=== PATIENT | male | born 1970 | race Caucasian/White ===

== ENCOUNTER 2019-12-27 14:11 | Emergency (ER) | payer OTHER, SELFPAY ==
--- NOTE | ~2019-12-27 | XR_ITS ---
EXAMINATION: XR hand LT 2V DATE: 12/27/2019 14:54 INDICATION: Left hand foreign bodies. TECHNIQUE: 2 views of left hand were obtained. COMPARISON: Left hand radiographs 11/19/2016 FINDINGS: Bone alignment is normal. No fracture. There is mild osteoarthritis of first carpometacarpa l joint and first metacarpophalangeal joint. There are nails in the soft tissues of the fourth and fi fth digits. IMPRESSION: 1. Nails in the soft tissues of the fourth and fifth digits. Reviewed, dictated and finalized at location A.
[2019-12-27 14:27] VITALS: BP 133/82; PULSE 93; RESP 14; TEMP 36.7; O2SAT 97
[2019-12-27] MEDS: TETANUS,DIPHTHERIA,AC PERTUSSIS ADULT 0.5 ML (ADACEL) IM (14:54)
[2019-12-27] MEDS: cefTRIAXone 1 GM VIAL IM (15:24)
[2019-12-27] MEDS: LIDOCAINE HCL 1% LOCAL INJ 20 ML VIAL (15:24)
--- NOTE | 2019-12-27 15:24 | ED.WOUNDLAC ---
HPI - Wound/Laceration General Chief Complaint: Wound/Laceration Stated Complaint: nail through hand Source: patient Mode of arrival: ambulatory Limitations: no limitations History of Present Illness HPI narrative: This is a 49-year-old patient presents with some nail through his left 4th finger that occurred earlier today while he was pulling up carpet and putting down a base a board and and elisabeth in his son's bedroom the nail went through the 4th left finger on the distal end currently there is no blood loss there was a non another nail that was touching the 5th finger but did not penetrate the skin. Has good range of motion although there was some pain and numbness. Patient was not up-to-date with his tetanus and was given at a cell. Onset (ago): hour(s) Extremity Location: Left: hand (nail through left 4th finger) Place: home Context: accidental Associated symptoms: pain Related Data Allergies Allergy/AdvReac Type Severity Reaction Status Date / Time No Known Allergies Allergy Verified 12/27/19 14:25 Review of Systems Review of Systems: All systems reviewed & are unremarkable except as noted in HPI and below PMFSH Past Medical History Medical History Diabetes mellitus Exam Const: General: no acute distress and alert Orientation/consciousness: patient oriented x3 HENMT: Head: normal to inspection and contusion Eyes: Conjunctivae: conjunctivae normal Pupils: Equal, round and reactive pupils present Neck: Neck: normal visual inspection, no lymphadenopathy and no meningeal signs Chest: Chest palpation & inspection: normal inspection of the chest Resp: Effort & Inspection: normal respiratory effort Auscultation: clear to auscultation bilaterally Cardio: Rate: regular rate Rhythm: regular rhythm Skin: Wounds: wounds noted ( nail that penetrated through the left 4th finger) Neuro: General: patient oriented x3, moves all extremities and no meningeal signs Extrem: General: normal to inspection Course Course Emergency Course: patient was id with his tetanus vaccine, was given a g of Rocephin IM, x-ray performed which did not show any fractures of the bone no indication of penetration into the bone patient was informed of this and the patient did receive 1% lidocaine and had a nerve block into the left 4th finger and the nail was removed with no incident, no bleeding minimal pain. Vital Signs Vital signs: Vital Signs Temperature 36.7 C 12/27/19 14:27 Pulse Rate 93 12/27/19 14:27 Respiratory Rate 14 12/27/19 14:27 Blood Pressure 133/82 12/27/19 14:27 Pulse Oximetry 97 12/27/19 14:27 Temperature 36.7 C 12/27/19 14:27 Pulse Rate 93 12/27/19 14:27 Respiratory Rate 14 12/27/19 14:27 Blood Pressure 133/82 12/27/19 14:27 Pulse Oximetry 97 12/27/19 14:27 Procedures Foreign Body Removal Foreign Body #1: Foreign Body Removal Date: 12/27/19 Foreign Body Removal Time: 15:30 Time Out Performed: no Site: left and hand ( Left 4th finger) Technique: manual removal Confirmed by:: direct visualization Complications: none Post-procedure exam: awake, alert Neurovascular: normal distal pulse Nerve Block Nerve Block 1: Nerve block date: 12/27/19 Nerve block time: 15:05 Time out performed: No Local Anesthetic: lidocaine 1% Amount of anesthesia used (mL): 10 Side: left Nerve Blocks: digital Procedure Successful: Yes Patient Tolerated Procedure: well Complications: none Critical Care Time Critical Care Time Critical Care Time: No Discharge Plan Discharge Clinical Impression: Foreign body (FB) in soft tissue, Cellulitis and abscess of hand Patient Disposition: Home, Self-Care Condition: Stable Instructions: Antibiotic Form Additional Instructions: take medicine as prescribed, follow-up
[2019-12-27 15:36] VITALS: RESP 15; O2SAT 100
--- NOTE | 2019-12-28 15:58 | PCCCNOTE ---
ED visit information [facility]. Spoke with Simón. Confirmation # [id number]
== END 2019-12-27 15:37 | disposition home or self-care (01) ==
PROVIDERS: Emergency Provider Emergency Medicine
DX: S61.245A Puncture wound with foreign body of left ring finger without damage to nail, initial encounter (principal); L03.114 Cellulitis of left upper limb; W45.0XXA Nail entering through skin, initial encounter
CPT/HCPCS: 73120; 90471; 90715; 96372; 99283; J0696

== ENCOUNTER 2025-06-11 07:41 | Emergency (ER) | payer OTHER, SELFPAY ==
--- NOTE | ~2025-06-11 | XR_ITS ---
EXAMINATION: XR foot RT min 3V, 06/11/2025 8:25 BUYER HISTORY: r/o OM/cellulitis, lateral redness, swollen, pain with WB COMPARISON: No comparisons available. Findings: No acute fracture or malalignment. No significant degenerative changes. Soft tissues unremarkable. Impression: No acute fracture or malalignment. Reviewed, dictated and finalized at location P. R Impression: No acute fracture or malalignment.
--- NOTE | 2025-06-11 07:42 | ED_ITS ---
HPI - Skin/Abscess/Foreign Bdy General Chief complaint: Extremity Problem,Nontraumatic Stated complaint: R. foot pain Time Seen by Provider: 06/11/25 07:42 Source: patient Mode of arrival: ambulatory Limitations: no limitations History of Present Illness HPI narrative: Patient is a 55-year-old male with a right foot redness over the past day. He woke up this morning with red foot on the right. He is diabetic 2. He has a corn on the bottom of his right foot laterally. No fever or chills. No injuries. MD complaint: rash (Right foot) Onset (ago): day(s) (1) Tetanus up to date: yes (Given in the past 10 years) Location: R foot Severity: moderate Severity scale (1-10): 1 Quality: burning Pain Consistency: intermittent Relieving factors: none Exacerbating factors: none Context: other (Patient has a corn on the bottom of his right foot and there has been a new redness he noted this morning around that area and the top of the foot with his diabetes 2) Associated symptoms: denies other symptoms Treatments prior to arrival: none Related Data Allergies Allergy/AdvReac Type Severity Reaction Status Date / Time No Known Allergies Allergy Verified 06/11/25 07:42 Review of Systems 2 Review of Systems: All systems reviewed & are unremarkable except as noted in HPI and below Constitutional: Constitutional: Reports no additional constitutional complaints Eyes: Eyes: Reports no additional eye complaints ENT: Reports system reviewed and no additional complaints, except as documented Cardiovascular: Cardiovascular: Reports no additional cardiovascular complaints Respiratory: Respiratory: Reports no additional respiratory complaints Gastrointestinal: Gastrointestinal: Reports no additional gastrointestinal complaints Genitourinary: Genitourinary: Reports no additional male genitourinary complaints Musculoskeletal: Musculoskeletal: Reports no additional musculoskeletal complaints Integumentary/Breasts: Skin/Breast: Reports system reviewed and no additional complaints, except as docu Neurologic: Reports system reviewed and no additional complaints, except as documented Psychiatric: Psychiatric: Reports no additional psychiatric complaints Endocrine: Endocrine: Reports no additional endocrine complaints Hematologic/Lymphatic: Hematologic/Lymphatic: Reports no additional hematologic/lymphatic complaints Allergic/Immunologic: Allergic/Immunologic: Reports no additional allergic/immunologic complaints PMFSH Social History Social History Smoking status: Never smoker Exam 2 Const: General: healthy appearing Nutritional Appearance: well nourished Orientation/consciousness: patient oriented x3 HENMT: Head: normal to inspection Ears: external ears normal F enriqueta/Nose/Sinus: Normal external nose present Eyes: Conjunctivae: conjunctivae normal Pupils: Equal, round and reactive pupils present EOM: EOMs intact bilaterally Neck: Neck: normal visual inspection Chest: Chest palpation & inspection: normal inspection of the chest Resp: Effort & Inspection: normal respiratory effort and not labored A uscultation: clear to auscultation bilaterally and no crackles Cardio: Rate: regular rate Rhythm: regular rhythm Heart sounds: no murmurs GI: Inspection: non-distended GI Palp: Yes Soft to palpation and No Tenderness to palpation present (GI) Auscultation: normal bowel sounds : General: Yes bladder normal to palpation Back/Spine/Pelvis: Back: no CVA tenderness Skin: General skin exam: No normal color Rashes: rash noted Wounds: w ound noted Other: Right foot has a corn on the bottom with a central opening but no pus; there is erythema around the corn and extends laterally and medially but laterally it comes all the way around to the top of the foot medially it stops midfoot; erythema does not extend into the toes Neuro: General: patient oriented x3, moves all extremities and no meningeal signs Extrem: General: abnormal to inspection (See skin exam), no clubbing, cyanosis or edema and no pedal edema Psych: Mental Status: mental status grossly normal Affect: normal affect Attitude: cooperative Course Vital Signs Vital signs: Vital Signs Temperature 36.2 C L 06/11/25 07:43 Pulse Rate 107 H 06/11/25 07:43 Respiratory Rate 20 06/11/25 07:43 Blood Pressure 141/72 H 06/11/25 07:43 Pulse Oximetry 99 06/11/25 07:43 Oxygen Delivery Room Air 06/11/25 07:43 Temperature 36.2 C L 06/11/25 07:43 Pulse Rate 107 H 06/11/25 07:43 Respiratory Rate 20 06/11/25 07:43 Blood Pressure 141/72 H 06/11/25 07:43 Pulse Oximetry 99 06/11/25 07:43 Oxygen Delivery Room Air 06/11/25 07:43 MDM - Skin/Abscess/Foreign Bdy MDM Narrative Medical decision making narrative: Patient is a 55-year-old male with a right foot redness for 1 day and and he has diabetes 2. Septic workup and Rocephin IM. Discharged with Levaquin and Bactrim. Lab Data Attestation: I reviewed the patient's lab results. 06/11/25 08:02 06/11/25 08:02 Labs: Lab Results 06/11/25 Range/Units 08:02 WBC 10.9 H (4.8-10.8) K/mm3 RBC 4.20 L (4.70-6.10) M/mm3 Hgb 13.7 L (14.0-18.0) g/dL Hct 39.9 L (40.0-54.0) % MCV 95.0 (78.0-102.0) fL MCH 32.6 H (27.0-31.0) pg MCHC 34.3 (32-36) g/dL RDW 11.9 (11.6-14.4) % Plt Count 216 (150-420) K/mm3 MPV 9.2 (8.7-11.0) fl Immature Gran % (Auto) 0.4 H (0.0-0.0) % Neut % (Auto) 82.9 H (50.0-70.0) % Lymph % (Auto) 8.8 L (18.0-42.0) % Mcnairy % (Auto) 7.2 (2.0-11.0) % Eos % (Auto) 0.5 L (1.0-6.0) % Baso % (Auto) 0.2 (0.0-1.0) % Lymph # (Auto) 0.96 L (1.10-4.50) K/mm3 Mcnairy # (Auto) 0.78 (0.10-0.90) K/mm3 Eos # (Auto) 0.05 (0.02-0.50) K/mm3 Baso # (Auto) 0.02 (0.00-0.10) K/mm3 Abs Immat Gran (auto) 0.04 H (0.00-0.00) K/mm3 Absolute Neuts (auto) 9.00 H (1.70-7.20) K/mm3 Absolute Nucleated RBC 0.00 (0.00-0.00) K/mm3 Nucleated RBC % 0.0 (0-0.0) % Sodium 141 (137-145) mmol/L Potassium 4.3 (3.4-5.0) mmol/L Chloride 101 (98-107) mmol/L Carbon Dioxide 26 (22-30) mmol/L Anion Gap 14 H (4-12) mmol/L BUN 21 H (9-20) mg/dL Creatinine 1.19 (0.7-1.3) mg/dL Estim Creat Clear Calc 78 ml/min Estimated GFR > 60 (59 - ) Glucose 180 H (65-110) mg/dL Calculated Osmolality 300 H (285-295) mOsm/kg Lactic Acid 1.3 (0.7-2.0) mmol/L Calcium 9.3 (8.4-10.2) mg/dL Total Bilirubin 1.3 (0.2-1.3) mg/dL AST 24 (17-59) U/L ALT 16 (6-50) U/L Alkaline Phosphatase 103 (38-126) U/L Total Protein 7.2 (6.3-8.2) g/dL Albumin 4.3 (3.5-5.1) g/dL Imaging Data Attestation: I personally reviewed and interpreted this imaging study as follows: Radiologist's impression: X-ray right foot was negative for acute process Discharge Plan Discharge Clinical Impression: Cellulitis of foot, right, Diabetes mellitus type 2 in nonobese Patient Disposition: Home Condition: Stable Instructions: Antibiotic Form, Cellulitis (ED), Foot Care for People with Diabetes (DC) Additional Instructions: Please follow-up with the primary doctor in the next week. If this area gets worse over the next 2 days then come back to the ER for further evaluation and probable admission for IV antibiotics. Make sure to use probiotics such as yogurt while on these antibiotics. Seek medical help if you get severe diarrhea. Patient Language: Danish Prescriptions: New levofloxacin 500 mg tablet 500 mg PO DAILY Qty: 10 0RF sulfamethoxazole-trimethoprim [Bactrim DS] 800-160 mg tablet 1 tablet PO BID 10 Days Qty: 20 0RF No Action orphenadrine citrate 100 mg tablet extended release 100 mg PO Q12H PRN (Reason: pain) Qty: 20 0RF Follow-up/Referrals: UNKNOWN,DOCTOR [Primary Care Provider] Time of Disposition: 08:48
[2025-06-11 07:43] VITALS: BP 141/72; PULSE 107; RESP 20; TEMP 36.2; O2SAT 99
[2025-06-11] MEDS: cefTRIAXone 1 GM, LIDOCAINE 1% LOCAL INJ 2.1 ML IM (08:07)
[2025-06-11 08:15] LABS: Hematocrit 39.9 % (40.0-54.0); Hemoglobin 13.7 g/dL (14.0-18.0); Immature Granulocyte Percent A 0.4 % (0.0-0.0); Lymphocytes Absolute Auto 0.96 K/mm3 (1.10-4.50); Mean Corpuscular HGB Conc 34.3 g/dL (32-36); Mean Corpuscular Hemoglobin 32.6 pg (27.0-31.0); Mean Corpuscular Volume 95.0 fL (78.0-102.0); Nucleated Red Blood Cells Absolute Auto 0.00 K/mm3 (0.00-0.00); Nucleated Red Blood Cells Perc 0.0 % (0-0.0); Platelet Count Result 216 K/mm3 (150-420); Red Blood Count 4.20 M/mm3 (4.70-6.10); White Blood Count 10.9 K/mm3 (4.8-10.8)
[2025-06-11 08:27] LABS: Alanine Aminotransferase 16 U/L (6-50); Albumin Level 4.3 g/dL (3.5-5.1); Alkaline Phosphatase 103 U/L (38-126); Anion Gap 14 mmol/L (4-12); Aspartate Amino Transferase 24 U/L (17-59); Bilirubin,Total 1.3 mg/dL (0.2-1.3); Blood Urea Nitrogen 21 mg/dL (9-20); Calcium 9.3 mg/dL (8.4-10.2); Carbon Dioxide 26 mmol/L (22-30); Chloride 101 mmol/L (98-107); Estimated CRCL calculation 78 ml/min; Estimated Glomerular Filt Rate > 60; Glucose 180 mg/dL (65-110); Osmolality Calculated 300 mOsm/kg (285-295); Potassium 4.3 mmol/L (3.4-5.0); Sodium 141 mmol/L (137-145); Total Protein 7.2 g/dL (6.3-8.2)
--- NOTE | 2025-06-11 08:31 | PC.NURSE ---
Radiology at bedside.
[2025-06-11 09:04] VITALS: BP 104/74; PULSE 93; RESP 16; O2SAT 99
--- NOTE | 2025-06-14 17:14 | PC.NURSE ---
blood, culture, preliminary no growth
--- NOTE | 2025-06-18 14:50 | PC.NURSE ---
FINAL BLOOD CULTURE REPORT; NO GROWTH IN 5 DAYS.
== END 2025-06-11 09:24 | disposition home or self-care (01) ==
PROVIDERS: Emergency Provider Emergency Medicine
DX: L03.115 Cellulitis of right lower limb (principal); E11.9 Type 2 diabetes mellitus without complications
CPT/HCPCS: 36415; 73630; 80053; 83605; 85025; 87040; 96372; 99283; J0696; J2003

== ENCOUNTER 2025-06-16 08:26 | Emergency (ER) | payer OTHER, SELFPAY ==
[2025-06-16] VITALS (51 sets, daily range): BP systolic 91–136; BP diastolic 62–91; PULSE 65–88; RESP 14–18; TEMP 36.2–36.8; O2SAT 96–100
--- NOTE | ~2025-06-16 | CT_ITS ---
EXAMINATION: CT foot RT wo con DATE: 06/16/2025 09:15 INDICATION: Right foot pain and infection. TECHNIQUE: Computed tomography (CT) of the right foot was performed without intravenous contrast. Automated exposure control and iterative reconstruction technique were employed. The dose-length product was 526.47 mGy-cm. COMPARISON: Right foot radiographs 06/11/2025 FINDINGS: There is dorsiflexion of the metatarsophalangeal joints and flexion of the interphalangeal joints. No acute fracture. There is an old healed fracture of first proximal phalanx. There are erosions of the head of the fifth metatarsal, consistent with osteomyelitis. There is an ulcer plantar to this area. There is mild osteoarthritis of many of the joints of the foot and ankle. There is soft tissue swelling identified. IMPRESSION: 1. Osteomyelitis involving head of fifth metatarsal. 2. Mild polyarticular osteoarthritis. Reviewed, dictated and finalized at location E. [employer] TECHNICIAN
--- NOTE | 2025-06-16 08:53 | ED_ITS ---
HPI - Extremity Injury (Lower) General Chief Complaint: Extremity Injury, Lower Stated Complaint: right foot redness and swelling Time Seen by Provider: 06/16/25 08:36 Source: patient Mode of arrival: ambulatory Limitations: no limitations History of Present Illness HPI Narrative: Patient is a 55-year-old male with a right foot small digit skin infection that has been going on for the past 1-2 weeks. He came to see me in fact a week ago and I put him on Levaquin and Bactrim to cross cover multiple possibilities. We did an x-ray and it was negative for osteomyelitis at that time. Patient presents today with worsening redness and a dark small toe. He was recommended to come back to the emergency room with worse symptoms and he is doing that at this time. He has not been able to follow-up with the primary doctor. This all started from a corn under the right small digit plantar surface. He has diabetes 2. He has some peripheral neuropathy. Tetanus up-to-date in the past 10 years. MD complaint: foot injury (Marianna under the right 5th digit plantar surface) Onset (ago): week(s) (2) Type of Injury: other (Marianna opening under the right foot 5th digit plantar surface) Place: home Severity: moderate Severity scale (1-10): 4 Relieving factors: other (Patient has been on Bactrim and Levaquin with initially good results and then further started to go bad again) Exacerbating factors: other (Diabetes 2) Context: other (No definite injury but there was a corn under the right foot 5th digit plantar surface that started all of this infection) Associated symptoms: swelling, numbness, tingling and able to partially bear weight Other symptoms: none Treatments prior to arrival: other (Bactrim and Levaquin orally with failed outpatient therapy at this time) Related Data Allergies Allergy/AdvReac Type Severity Reaction Status Date / Time No Known Allergies Allergy Verified 06/16/25 08:35 Review of Systems 2 Review of Systems: All systems reviewed & are unremarkable except as noted in HPI and below Constitutional: Constitutional: Reports no additional constitutional complaints Eyes: Eyes: Reports no additional eye complaints ENT: Reports system reviewed and no additional complaints, except as documented Cardiovascular: Cardiovascular: Reports no additional cardiovascular complaints Respiratory: Respiratory: Reports no additional respiratory complaints Gastrointestinal: Gastrointestinal: Reports no additional gastrointestinal complaints Genitourinary: Genitourinary: Reports no additional male genitourinary complaints Musculoskeletal: Musculoskeletal: Reports no additional musculoskeletal complaints Integumentary/Breasts: Skin/Breast: Reports system reviewed and no additional complaints, except as docu Neurologic: Reports system reviewed and no additional complaints, except as documented Psychiatric: Psychiatric: Reports no additional psychiatric complaints Endocrine: Endocrine: Reports no additional endocrine complaints Hematologic/Lymphatic: Hematologic/Lymphatic: Reports no additional hematologic/lymphatic complaints Allergic/Immunologic: Allergic/Immunologic: Reports no additional allergic/immunologic complaints [facility] Past Medical History Medical History (Updated 06/16/25 @ 11:15 by Alejandro Alberto MD) Diabetes mellitus Exam 2 Const: General: healthy appearing Nutritional Appearance: well nourished Orientation/consciousness: patient oriented x3 Limitations: no limitations HENMT: Head: normal to inspection Ears: external ears normal F enriqueta/Nose/Sinus: Normal external nose present Eyes: Conjunctivae: conjunctivae normal Pupils: Equal, round and reactive pupils present EOM: EOMs intact bilaterally Neck: Neck: normal visual inspection Chest: Chest palpation & inspection: normal inspection of the chest Resp: Effort & Inspection: normal respiratory effort and not labored A uscultation: clear to auscultation bilaterally and no crackles Cardio: Rate: regular rate Rhythm: regular rhythm Heart sounds: no murmurs GI: Inspection: non-distended GI Palp: Yes Soft to palpation and No Tenderness to palpation present (GI) Auscultation: normal bowel sounds : General: Yes bladder normal to palpation Back/Spine/Pelvis: Back: no CVA tenderness Skin: General skin exam: No normal color Rashes: no rashes Wounds: wound noted Other: Right foot plantar surface under the 5th digit base has a small residual corn opening; 5th digit is darkened and purplish discoloration darkening with localized erythema; erythema extends from toes all the way up to mid michaels anterior leg; this is not circumferential; there is a initially a blister starting at the base of the small 5th digit dorsum Neuro: General: patient oriented x3, moves all extremities, no meningeal signs, no focal motor deficits and CN's II-XI intact bilaterally Extrem: General: normal to inspection Other: Please see skin exam Psych: Mental Status: mental status grossly normal Affect: normal affect Attitude: cooperative Course Vital Signs Vital signs: Vital Signs Temperature 36.2 C L 06/16/25 08:26 Pulse Rate 84 06/16/25 08:26 Respiratory Rate 16 06/16/25 08:26 Blood Pressure 98/73 L 06/16/25 08:26 Pulse Oximetry 99 06/16/25 08:26 Oxygen Delivery Room Air 06/16/25 08:26 Temperature 36.2 C L 06/16/25 08:26 Pulse Rate 80 06/16/25 11:01 Respiratory Rate 16 06/16/25 11:01 Blood Pressure 101/69 06/16/25 11:01 Pulse Oximetry 100 06/16/25 11:01 Oxygen Delivery Room Air 06/16/25 08:26 MDM - Extremity Injury (Lower) MDM Narrative Medical decision making narrative: Patient is a 55-year-old male with a right foot 5th digit darkening and cellulitis up to the michaels with diabetes 2. We will do labs and sepsis workup. CT scan. IV fluids. IV antibiotics to include Zosyn and vancomycin. Transfer to higher level medical care for surgery to evaluate intervention of the small digit. Lab Data Attestation: I reviewed the patient's lab results. 06/16/25 09:24 06/16/25 09:23 Labs: Lab Results 06/16/25 06/16/25 Range/Units 09:23 09:24 WBC 10.0 (4.8-10.8) K/mm3 RBC 3.72 L (4.70-6.10) M/mm3 Hgb 12.1 L (14.0-18.0) g/dL Hct 36.3 L (40.0-54.0) % MCV 97.6 (78.0-102.0) fL MCH 32.5 H (27.0-31.0) pg MCHC 33.3 (32-36) g/dL RDW 11.9 (11.6-14.4) % Plt Count 255 (150-420) K/mm3 MPV 8.7 (8.7-11.0) fl Immature Gran % (Auto) 0.8 H (0.0-0.0) % Neut % (Auto) 86.4 H (50.0-70.0) % Lymph % (Auto) 7.2 L (18.0-42.0) % Yancey % (Auto) 5.0 (2.0-11.0) % Eos % (Auto) 0.3 L (1.0-6.0) % Baso % (Auto) 0.3 (0.0-1.0) % Lymph # (Auto) 0.72 L (1.10-4.50) K/mm3 Yancey # (Auto) 0.50 (0.10-0.90) K/mm3 Eos # (Auto) 0.03 (0.02-0.50) K/mm3 Baso # (Auto) 0.03 (0.00-0.10) K/mm3 Abs Immat Gran (auto) 0.08 H (0.00-0.00) K/mm3 Absolute Neuts (auto) 8.59 H (1.70-7.20) K/mm3 Absolute Nucleated RBC 0.00 (0.00-0.00) K/mm3 Nucleated RBC % 0.0 (0-0.0) % PT 11.7 (9.50-12.1) Seconds INR 1.1 APTT 31.8 H (23.9-30.70) Sec Sodium 142 (137-145) mmol/L Potassium 4.4 (3.4-5.0) mmol/L Chloride 105 (98-107) mmol/L Carbon Dioxide 24 (22-30) mmol/L Anion Gap 13 H (4-12) mmol/L BUN 34 H (9-20) mg/dL Creatinine 1.61 H (0.7-1.3) mg/dL Estim Creat Clear Calc 57 ml/min Estimated GFR 45 L (59 - ) Glucose 167 H (65-110) mg/dL Calculated Osmolality 305 H (285-295) mOsm/kg Lactic Acid 0.9 (0.7-2.0) mmol/L Calcium 9.4 (8.4-10.2) mg/dL Total Bilirubin 0.7 (0.2-1.3) mg/dL AST 37 (17-59) U/L ALT 27 (6-50) U/L Alkaline Phosphatase 96 (38-126) U/L C-Reactive Protein > 9.0 H (<1.0) mg/dL Total Protein 7.0 (6.3-8.2) g/dL Albumin 3.8 (3.5-5.1) g/dL Procalcitonin Cancelled Imaging Data Attestation: I personally reviewed and interpreted this imaging study as follows: Radiologist's impression: CT scan of the right foot shows osteomyelitis 5th digit Discharge Plan Discharge Clinical Impression: Acute osteomyelitis of right foot, Cellulitis of foot, right, Diabetes mellitus type 2 with complications, CANDIS (acute kidney injury) Patient Disposition: Acute Care Hospital Condition: Stable Patient Language: Finnish Prescriptions: No Action amoxicillin-pot clavulanate [Augmentin] 875-125 mg tablet 1 tablet PO Q12H Qty: 20 0RF metronidazole [Flagyl] 500 mg tablet 500 mg PO Q8H Qty: 30 0RF oxycodone-acetaminophen [Percocet] 5-325 mg tablet 1 tablet PO Q6H PRN (Reason: pain) Qty: 20 0RF Follow-up/Referrals: [facility] [Primary Care Provider, Medical] Time of Disposition: 11:14
[2025-06-16] MEDS: SODIUM CHLORIDE 0.9% IV 1,000 ML 999 ML IV CONT (09:05)
[2025-06-16] MEDS: PIPERACILLIN/TAZOBACTAM SOD 3.375 GM in SODIUM CHLORIDE 0.9% IV 50 ML 100 ML IVPB (09:21)
[2025-06-16 09:30] LABS: Hematocrit 36.3 % (40.0-54.0); Hemoglobin 12.1 g/dL (14.0-18.0); Immature Granulocyte Percent A 0.8 % (0.0-0.0); Lymphocytes Absolute Auto 0.72 K/mm3 (1.10-4.50); Mean Corpuscular HGB Conc 33.3 g/dL (32-36); Mean Corpuscular Hemoglobin 32.5 pg (27.0-31.0); Mean Corpuscular Volume 97.6 fL (78.0-102.0); Nucleated Red Blood Cells Absolute Auto 0.00 K/mm3 (0.00-0.00); Nucleated Red Blood Cells Perc 0.0 % (0-0.0); Platelet Count Result 255 K/mm3 (150-420); Red Blood Count 3.72 M/mm3 (4.70-6.10); White Blood Count 10.0 K/mm3 (4.8-10.8)
[2025-06-16 09:40] LABS: INR 1.1; Partial Thromboplastin Time 31.8 Sec (23.9-30.70); Prothrombin Time 11.7 Seconds (9.50-12.1)
[2025-06-16 09:42] LABS: Alanine Aminotransferase 27 U/L (6-50); Albumin Level 3.8 g/dL (3.5-5.1); Alkaline Phosphatase 96 U/L (38-126); Anion Gap 13 mmol/L (4-12); Aspartate Amino Transferase 37 U/L (17-59); Bilirubin,Total 0.7 mg/dL (0.2-1.3); Blood Urea Nitrogen 34 mg/dL (9-20); CRP > 9.0 mg/dL (<1.0); Calcium 9.4 mg/dL (8.4-10.2); Carbon Dioxide 24 mmol/L (22-30); Chloride 105 mmol/L (98-107); Estimated CRCL calculation 57 ml/min; Estimated Glomerular Filt Rate 45; Glucose 167 mg/dL (65-110); Osmolality Calculated 305 mOsm/kg (285-295); Potassium 4.4 mmol/L (3.4-5.0); Sodium 142 mmol/L (137-145); Total Protein 7.0 g/dL (6.3-8.2)
[2025-06-16] MEDS: VANCOMYCIN 1,250 MG/NS 250 ML 1,250 MG/250 ML BAG 166.67 MG IVPB ×2 (10:35→12:08)
[2025-06-16 14:48] LABS: Creatine Kinase 36 U/L (55-170)
--- NOTE | 2025-06-19 12:16 | PC.NURSE ---
blood cultures x2 reviewed. no growth in 24 hours.
--- NOTE | 2025-06-20 13:14 | PC.NURSE ---
blood perliminary, no growth
--- NOTE | 2025-06-23 15:04 | PC.NURSE ---
FINAL BLOOD CULTURE REPORT; NO GROWTH IN 5 DAYS.
== END 2025-06-16 15:13 ==
PROVIDERS: Emergency Provider Emergency Medicine
DX: M86.171 Other acute osteomyelitis, right ankle and foot (principal); E11.628 Type 2 diabetes mellitus with other skin complications; L03.115 Cellulitis of right lower limb; N17.9 Acute kidney failure, unspecified
CPT/HCPCS: 36415; 73700; 80053; 82550; 83605; 85025; 85610; 85730; 86140; 87040; 96365; 96366; 96367; 99285; J2543; J3373; J7030